=== PATIENT | female | born 1980 | race Caucasian/White ===

== ENCOUNTER 2019-09-15 15:00 | Emergency (ER) | payer BC, OTHER ==
[~2019-09-15] VITALS: Ht 162.6 cm; Wt 80.7 kg
[2019-09-15 15:28] LABS: Basophils # (auto) 0.1 uL; Basophils % (auto) 0.9 % (0.0-2.0); Eosinophils # (auto) 0.1 uL; Eosinophils % (auto) 0.5 % (0.0-7.0); Hematocrit 42.8 % (36.0-46.0); Hemoglobin 14.7 g/dL (12.2-16.2); Lymphocytes # (auto) 2.8 uL; Lymphocytes % (auto) 24.8 % (10.0-50.0); Mean Corpuscular Hemoglobin 29.4 pg (28.0-32.0); Mean Corpuscular Hgb Conc. 34.3 g/dL (32.0-36.0); Mean Corpuscular Volume 85.8 fL (80.0-100.0); Monocytes # (auto) 0.7 uL; Monocytes % (auto) 6.2 % (0.0-12.0); Neutrophils # (auto) 7.7 uL; Neutrophils % (auto) 67.6 % (37.0-80.0); Platelet Count (auto) 450 10^3/uL (140-450); Red Blood Cells 4.99 10^6/uL (4.0-5.20); Red Cell Distribution Width 13.8 % (11.8-14.3); White Blood Cell 11.4 10^3/uL (4.4-10.8)
[2019-09-15] MEDS ORDERED: IOHEXOL 300 MG/ML 100ML BOTTLE IJ ONE (15:44)
[2019-09-15 15:58] LABS: Calcium 8.7 mg/dL (8.5-10.1); Potassium 3.6 mmol/L (3.5-5.1)
[2019-09-15] MEDS ORDERED: EPINEPHrine HCL 0.5 ML NEB NEB ONE (16:00)
[2019-09-15 16:01] LABS: Bilirubin, Total 0.7 mg/dL (0.2-1.0)
[2019-09-15 16:33] LABS: Urine Bacteria NONE SEEN /hpf (None Seen); Urine Blood Negative /uL (Negative); Urine Mucus FEW (None Seen); Urine Specific Gravity 1.019 (1.001-1.035); Urine WBC 1 /hpf (0 - 5)
[2019-09-15 18:09] VITALS: BP 116/71
== END 2019-09-15 18:19 | disposition home or self-care (01) ==
LOC: ER 15:17
DX: J04.0 Acute laryngitis (principal); E04.9 Nontoxic goiter, unspecified; J45.909 Unspecified asthma, uncomplicated; Z90.89 Acquired absence of other organs
CPT/HCPCS: 36415; 70491; 71046; 80053; 81001; 81025; 83735; 84443; 85025; 94640; 99284; Q9967